=== PATIENT | female | born 1980 | race American Indian/Alaskan Native ===

== ENCOUNTER 2016-08-11 18:33 | Emergency (ER) | payer MEDICAID ==
[2016-08-11 18:38] VITALS: BMI 30.7
[2016-08-11 18:41] VITALS: TEMP 98.8; O2SAT 100
[2016-08-11] MEDS ORDERED: Sodium Chloride 0.9% 1,000 ML IV STA (19:28)
--- NOTE | 2016-08-11 19:34 | ED PDOC ---
Arrival/HPI - General Chief Complaint: Female Genitourinary Time Seen by Provider: 08/11/16 19:13 Historian: Patient - History of Present Illness Narrative History of Present Illness (Text): 08/11/16 19:31 35yr old female A4 presents today with vaginal bleeding. pt states she was recently seen in the ER at the beginning of the month for vaginal spotting. pt states she has been having intermittent spotting but today she started to have heavier vaginal bleeding now with clots. pt denies abdominal pain. no cp or sob. no vomiting/diarrhea. no medications taken at home. pts [employer] [place]: dr. mckeon. No urinary symptoms. no other complaints. Past Medical History - Provider Review Nursing Documentation Reviewed: Yes - Travel History Have you recently traveled outside [place] w/in the past 3 mons?: No - Tetanus Immunization Tetanus Immunization: Unknown - Psychiatric Hx Substance Use: No - Surgical History Hx Dilation and Curettage: Yes Family/Social History - Physician Review Nursing Documentation Reviewed: Yes Family/Social History: Unknown Family HX Smoking Status: Former Smoker Hx Alcohol Use: No Hx Substance Use: No Allergies/Home Meds Allergies/Adverse Reactions: Allergies No Known Allergies Allergy (Verified 08/11/16 18:38) Review of Systems - Review of Systems Constitutional: absent: Fatigue, Fevers Respiratory: absent: SOB, Cough Cardiovascular: absent: Chest Pain, Palpitations Gastrointestinal: absent: Abdominal Pain, Constipation, Diarrhea, Nausea, Vomiting Genitourinary Female: Vaginal Bleeding. absent: Dysuria, Frequency, Hematuria, Vaginal Discharge Musculoskeletal: absent: Arthralgias, Back Pain, Neck Pain Skin: absent: Rash, Pruritis Neurological: absent: Headache, Dizziness Psychiatric: absent: Anxiety, Depression Physical Exam Vital Signs Reviewed: Yes Vital Signs Temp Pulse Resp BP Pulse Ox 08/11/16 23:05 85 16 125/89 100 08/11/16 20:44 89 17 122/91 H 100 08/11/16 20:00 86 18 131/79 100 08/11/16 18:38 98.8 F 90 16 133/89 100 Temperature: Afebrile Blood Pressure: Normal Pulse: Regular Respiratory Rate: Normal Appearance: Positive for: Well-Appearing, Non-Toxic, Comfortable Pain Distress: None Mental Status: Positive for: Alert and Oriented X 3 - Systems Exam Head: Present: Atraumatic Mouth: Present: Moist Mucous Membranes Neck: Present: Normal Range of Motion Respiratory/Chest: Present: Clear to Auscultation, Good Air Exchange. No: Respiratory Distress, Accessory Muscle Use Cardiovascular: Present: Regular Rate and Rhythm, Normal S1, S2. No: Murmurs Abdomen: Present: Normal Bowel Sounds. No: Tenderness, Distention, Peritoneal Signs, Rebound, Guarding Genitourinary/Pelvic Exam: Present: Normal External Genitalia, Vaginal Bleeding , Cervical os Closed, Other (chaparoned by Chance james RN). No: Vaginal Discharge, Vaginal Lesions, Adenexal Tenderness, Adenexal Mass, Cervical Motion Tendernes, Odor Back: Present: Normal Inspection Upper Extremity: Present: Normal ROM Lower Extremity: Present: Normal ROM Neurological: Present: GCS=15 Skin: Present: Warm, Dry, Normal Color. No: Rashes Psychiatric: Present: Alert, Oriented x 3 Medical Decision Making ED Course and Treatment: 08/11/16 19:56 Patient is nontoxic well appearing in no distress. vital signs are stable. CBC: wnl CMP: wnl Beta hC.30 TYPE AND SCREEN: Urinalysis: trace leukocytes; 5-10wbcs Ultrasound:FINDINGS: Uterus: Measures 8.8 x 4.9 x 6.6 cm. There does appear to an early intrauterine gestational sac, containing a pole and yolk sac, but this is abnormal in appearance. The gestational sac is abnormally elongated in shape. The yolk sac is irregular in shape. Estimated gestational age is 6 weeks, 1 day, based on the crown rump length. There is absence of detectable heart motion on real time, as well as absence of flow within the pole on color imaging. Findings are suspicious for intrauterine demise. Complex cystic, crescent-shaped area seen adjacent to the gestational sac, suspicious for a subchorionic hemorrhage. This measures up to 2.2 x 0.6 x 1.0 cm in size. Cervix appears closed. Right ovary: Could not be visualized. Left ovary: Somewhat poorly seen due to gas. Grossly normal in appearance. Measures 1.8 x 1.0 x 1.1 cm. Flow seen in the left ovary on Doppler imaging, with no evidence of torsion. Cul de sac: No free fluid. IMPRESSION: Early 6 week, 1 day intrauterine . There is absence of detectable heart motion, suspicious for intrauterine demise. There is a suspected 2.2 cm subchorionic hemorrhage. The gestational sac is abnormally elongated in shape, which can be a sign of an impending miscarriage. Followup is recommended. Right ovary could not be visualized. spoke with dr. mckeon; pts [employer] [place]. discussed both US results (08/02/16 and todays ) with him; he advised f/u in his office next week. Discussed all the results the patient. advised f/u with the urogynecology physician within the next 2 days. advised immediate return if symptoms worsen,persist or if new symptoms develop. Impression: threatened , UTI Tylenol every 4 hours as needed for pain Increase fluids Followup with the [employer] within the next 2 days macrobid; 1 tablet twice daily x 7 days Return immediately if symptoms worsen persist or if new symptoms develop: High fevers, heavy bleeding, severe abdominal pain, vomiting, diarrhea, dizziness or weakness or any other concerning symptoms develop. - Lab Interpretations Lab Results: 08/11/16 19:25 08/11/16 19:25 Lab Results 08/11/16 20:12: Blood Type Confirm A POSITIVE 08/11/16 19:25: WBC 7.0, RBC 4.64, Hgb 13.7, Hct 39.3, MCV 84.7, MCH 29.5, MCHC 34.9, RDW 13.4, Plt Count 275, MPV 10.3, Gran % 51.4, Lymph % (Auto) 39.8 H, Cabell % (Auto) 5.6, Eos % (Auto) 2.6, Baso % (Auto) 0.6, Gran # 3.61, Lymph # 2.8 , Cabell # 0.4, Eos # 0.2, Baso # 0.04 08/11/16 19:25: Blood Type A POSITIVE, Antibody Screen Negative, BBK History Checked No verified bt 08/11/16 19:25: Beta HCG, Quant 2243.30 H 08/11/16 19:25: Sodium 134, Potassium 3.7, Chloride 100, Carbon Dioxide 26, Anion Gap 12, BUN 9, Creatinine 0.7, Est GFR ( Amer) > 60, Est GFR (Non- Af Amer) > 60, Random Glucose 83, Calcium 9.7, Total Bilirubin 0.6, AST 39, ALT 40, Alkaline Phosphatase 69, Total Protein 8.4 H, Albumin 4.7, Globulin 3.7, Albumin/Globulin Ratio 1.3 08/11/16 19:25: Urine Color Yellow, Urine Appearance Sl cloudy, Urine pH 6.0, Ur Specific Bradley 1.020, Urine Protein Trace H, Urine Glucose (UA) Negative, Urine Ketones 15 H, Urine Blood Large H, Urine Nitrate Negative, Urine Bilirubin Negative, Urine Urobilinogen 0.2, Ur Leukocyte Esterase Trace H, Urine RBC Tntc, Urine WBC 5 - 10, Ur Epithelial Cells 1 - 3, Urine Bacteria Few - RAD Interpretation Radiology Orders: 08/11/16 19:14 OB TRANSVAGINAL [US] Stat - Medication Orders Current Medication Orders: Discontinued Medications Sodium Chloride (Sodium Chloride 0.9%) 1,000 mls @ 999 mls/hr IV .Q1H1M STA Stop: 08/11/16 20:28 Last Admin: 08/11/16 19:28 Dose: 999 mls/hr Disposition/Present on Arrival - Present on Arrival Any Indicators Present on Arrival: No History of DVT/PE: No History of Uncontrolled Diabetes: No Urinary Catheter: No History of Decub. Ulcer: No History Surgical Site Infection Following: None - Disposition Have Diagnosis and Disposition been Completed?: Yes Diagnosis: Threatened , Urinary tract infection Disposition: HOME/ ROUTINE Disposition Time: 22:47 Patient Plan: Discharge Condition: GOOD Discharge Instructions (ExitCare): Threatened Miscarriage (ED) Additional Instructions: Tylenol every 4 hours as needed for pain Increase fluids Followup with the [employer] [place] within the next 2 days macrobid; 1 tablet twice daily x 7 days Return immediately if symptoms worsen persist or if new symptoms develop: High fevers, heavy bleeding, severe abdominal pain, vomiting, diarrhea, dizziness or weakness or any other concerning symptoms develop. Prescriptions: Nitrofurantoin Macrocrystals [Macrobid] 100 mg PO BID #20 cap Multivit/Folic Acid/I [ Plus] 1 tab PO DAILY #30 tab Referrals: Marbin Quiñonez DO [Primary Care Provider] - Follow up with primary Wally Mckeon MD [Staff Provider] - Follow up with primary
[2016-08-11 19:43] LABS: ADD MANUAL DIFF? NO
[2016-08-11 19:54] LABS: BASO # 0.04 K/mm3 (0.0-2.0); BASO % 0.6 % (0.0-3.0); EOS # 0.2 (0.0-0.7); EOS % 2.6 % (1.5-5.0); GRAN # 3.61 (1.4-6.5); GRAN % 51.4 % (50.0-68.0); HEMATOCRIT 39.3 % (36.0-48.0); LYMPH # 2.8 (1.2-3.4); LYMPH % 39.8 % (22.0-35.0); MEAN CELL VOLUME 84.7 fL (80.0-105.0); MEAN CORPUSCULAR HEMOGLOBIN 29.5 pg (25.0-35.0); MEAN CORPUSCULAR HGB CONC 34.9 g/dl (31.0-37.0); MEAN PLATELET VOLUME 10.3 fl (7.0-11.0); MONO # 0.4 (0.1-0.6); MONO % 5.6 % (1.0-6.0); PLATELET COUNT 275 10^3/uL (120.0-450.0); RED CELL DISTRIBUTION WIDTH 13.4 % (11.5-14.5); URINE BILIRUBIN NEGATIVE (NEGATIVE); URINE BLOOD LARGE (NEGATIVE); URINE GLUCOSE (UA) NEGATIVE (NEGATIVE); URINE KETONE 15 mg/dL (NEGATIVE); URINE LEUKOCYTE ESTERASE TRACE Leu/uL (NEGATIVE); URINE PROTEIN TRACE mg/dL (<30 mg/dL); URINE UROBILINOGEN 0.2 E.U./dL (<1 E.U./dL)
[2016-08-11 20:01] LABS: URINE APPEARANCE SL CLOUDY (CLEAR); URINE COLOR YELLOW (YELLOW)
[2016-08-11 20:06] LABS: ALB/GLOB RATIO 1.3 (1.1-1.8); ALKALINE PHOSPHATASE 69 U/L (38-133); ALT/SGPT 40 U/L (7-56); AST/SGOT 39 U/L (15-39); BILIRUBIN,TOTAL 0.6 mg/dL (0.2-1.3); BLOOD UREA NITROGEN 9 mg/dL (7-21); CALCIUM 9.7 mg/dL (8.4-10.5); CARBON DIOXIDE 26 mmol/L (21-33); CHLORIDE 100 mmol/L (98-107); GFR AFRICAN-AMERICAN > 60; GLUCOSE,RANDOM 83 mg/dL (70-110); POTASSIUM 3.7 mmol/L (3.6-5.0); SODIUM 134 mmol/L (132-148); TOTAL PROTEIN 8.4 g/dL (5.8-8.3)
[2016-08-11 20:44] LABS: URINE BACTERIA FEW (NEG); URINE RBC TNTC /hpf (0-2)
--- NOTE | 2016-08-11 21:00 | US ---
EXAM: US First Trimester, Transabdominal US , Transvaginal CLINICAL HISTORY: 35 years old, female; Pain; complicated by abdominal or pelvic pain; Lower; First trimester; Gestational age or lmp: ; ; Additional info: /bleeding TECHNIQUE: Real-time transabdominal and transvaginal obstetrical ultrasound of the maternal pelvis and a first trimester with image documentation. Transvaginal imaging was used for better evaluation of the fetus and adnexa. EXAM DATE/TIME: 08/11/2016 7:14 PM COMPARISON: No relevant prior studies available. FINDINGS: Uterus: Measures 8.8 x 4.9 x 6.6 cm. There does appear to an early intrauterine gestational sac, containing a pole and yolk sac, but this is abnormal in appearance. The gestational sac is abnormally elongated in shape. The yolk sac is irregular in shape. Estimated gestational age is 6 weeks, 1 day, based on the crown rump length. There is absence of detectable heart motion on real time, as well as absence of flow within the pole on color imaging. Findings are suspicious for intrauterine demise. Complex cystic, crescent-shaped area seen adjacent to the gestational sac, suspicious for a subchorionic hemorrhage. This measures up to 2.2 x 0.6 x 1.0 cm in size. Cervix appears closed. Right ovary: Could not be visualized. Left ovary: Somewhat poorly seen due to gas. Grossly normal in appearance. Measures 1.8 x 1.0 x 1.1 cm. Flow seen in the left ovary on Doppler imaging, with no evidence of torsion. Cul de sac: No free fluid. IMPRESSION: Early 6 week, 1 day intrauterine . There is absence of detectable heart motion, suspicious for intrauterine demise. There is a suspected 2.2 cm subchorionic hemorrhage. The gestational sac is abnormally elongated in shape, which can be a sign of an impending miscarriage. Followup is recommended. Right ovary could not be visualized.
[2016-08-11 23:06] VITALS: BP 125/89; PULSE 85; RESP 16
== END 2016-08-11 23:09 | disposition home or self-care (01) ==
LOC: ED 18:33
DX: O23.41 Unspecified infection of urinary tract in pregnancy, first trimester (principal); Z3A.01 Less than 8 weeks gestation of pregnancy; O20.0 Threatened abortion
CPT/HCPCS: 76817; 80053; 81001; 84702; 85025; 86850; 86900; 87086; 96360; 99285; J7040